=== PATIENT | female | born 1995 | race Two or more races ===

== ENCOUNTER 2023-06-14 12:58 | Inpatient (IN) | payer MEDICAID, OTHER ==
[~2023-06-14] VITALS: Ht 154.9 cm; Wt 55.0 kg
[2023-06-14] MEDS: SODIUM CHLORIDE 0.9% 1,000 ML IVB ONE (14:45)
[2023-06-14] MEDS: SODIUM CHLORIDE 0.9% 500 ML IVB ONE (14:45)
[2023-06-14] MEDS: SODIUM CHLORIDE 0.9% 1,000 ML IV ONE ×2 (15:30)
[2023-06-14 15:56] LABS: Basophils # (auto) 0 10 ^3/uL (0-0.2); Basophils % (auto) 0.6 % (0.0-2.0); Eosinophils # (auto) 0.2 10 ^3/uL (0-0.8); Eosinophils % (auto) 4.3 % (0.0-7.0); Hematocrit 41.9 % (36.0-46.0); Hemoglobin 14.2 g/dL (12.2-16.2); Lymphocytes # (auto) 1.6 10 ^3/uL (0.4-5.4); Lymphocytes % (auto) 31.6 % (10.0-50.0); Mean Corpuscular Hemoglobin 33.7 pg (28.0-32.0); Mean Corpuscular Volume 99.3 fL (80.0-100.0); Monocytes # (auto) 0.3 10 ^3/uL (0-1.3); Monocytes % (auto) 6.5 % (0.0-12.0); Neutrophils # (auto) 2.9 10 ^3/uL (1.6-8.6); Nucleated Red Blood Cells % 0.2 %; Red Blood Cells 4.22 10^6/uL (4.0-5.20); Red Cell Distribution Width 14.2 % (11.8-14.3); White Blood Cell 5.1 10^3/uL (4.4-10.8)
[2023-06-14 16:02] LABS: Alanine Aminotransferase 63 U/L (7-40); Albumin 4.3 g/dL (3.2-4.8); Alkaline Phosphatase 88 U/L (46-116); Anion Gap 9 (5-15); Aspartate Aminotransferase 76 U/L (13-40); BUN/Creatinine Ratio 6.9 (10.0-20.0); Bilirubin, Total 0.2 mg/dL (0.2-1.0); Blood Urea Nitrogen 5 mg/dL (9-23); Carbon Dioxide 24 mmol/L (20-30); Chloride 110 mmol/L (98-107); Glucose 92 mg/dL (74-106); Potassium 4.1 mmol/L (3.5-5.1); Sodium 143 mmol/L (136-145); Total Protein 7.4 g/dL (5.7-8.2)
[2023-06-14] MEDS ORDERED: DOCUSATE SOD 100 MG CAP PO PRN (19:45)
[2023-06-14] MEDS ORDERED: NITROGLYCERIN 0.4 MG SL TAB SL PRN (19:45)
[2023-06-14] MEDS ORDERED: MORPHINE SULFATE INJ 2 MG/ml SYRG IV PRN (19:45)
[2023-06-15] VITALS (8 sets, daily range): BP systolic 81–109; BP diastolic 45–72; PULSE 59–91; RESP 16–17; TEMP 97.2–98.2; O2SAT 98–99
[2023-06-15] MEDS: LORazepam 2MG/ML-1ML VIAL IV PRN ×2 (05:05→16:39)
[2023-06-15] MEDS: ACETAMINOPHEN 325 MG TAB PO PRN (05:05)
[2023-06-15] MEDS: SODIUM CHLORIDE 0.9% 1,000 ML IV ONE (05:08)
[2023-06-15] MEDS: THIAMINE 100mg/ml INJ (200mg/2ml VIAL) IV ONE (05:12)
[2023-06-15 07:37] LABS: Basophils # (auto) 0 10 ^3/uL (0-0.2); Eosinophils # (auto) 0.2 10 ^3/uL (0-0.8); Eosinophils % (auto) 4.3 % (0.0-7.0)
[2023-06-15 07:39] LABS: Basophils % (auto) 0.4 % (0.0-2.0); Hematocrit 35.2 % (36.0-46.0); Lymphocytes # (auto) 1.7 10 ^3/uL (0.4-5.4); Lymphocytes % (auto) 32.8 % (10.0-50.0); Mean Corpuscular Hemoglobin 34.2 pg (28.0-32.0); Mean Corpuscular Volume 100.7 fL (80.0-100.0); Monocytes # (auto) 0.5 10 ^3/uL (0-1.3); Monocytes % (auto) 9.3 % (0.0-12.0); Neutrophils # (auto) 2.7 10 ^3/uL (1.6-8.6); Neutrophils % (auto) 53.2 % (37.0-80.0); Nucleated Red Blood Cells % 0.1 %; Red Cell Distribution Width 14.1 % (11.8-14.3); White Blood Cell 5.1 10^3/uL (4.4-10.8)
[2023-06-15 07:43] LABS: Alanine Aminotransferase 51 U/L (7-40); Albumin 3.4 g/dL (3.2-4.8); Alkaline Phosphatase 68 U/L (46-116); Anion Gap 6 (5-15); Aspartate Aminotransferase 70 U/L (13-40); BUN/Creatinine Ratio 9.7 (10.0-20.0); Blood Urea Nitrogen 6 mg/dL (9-23); Carbon Dioxide 25 mmol/L (20-30); Chloride 109 mmol/L (98-107); Glucose 77 mg/dL (74-106); Potassium 3.6 mmol/L (3.5-5.1); Sodium 140 mmol/L (136-145)
[2023-06-15 07:44] LABS: Bilirubin, Total 0.6 mg/dL (0.2-1.0)
[2023-06-15] MEDS: ONDANSETRON HCL 4 MG/2 ML VIAL IV PRN (08:47)
[2023-06-15] MEDS: FOLIC ACID 1 MG TAB PO SCH (10:19)
[2023-06-15] MEDS: THIAMINE HCL 100 MG TAB PO SCH (10:19)
[2023-06-15] MEDS: MULTIPLE VITAMIN TAB PO SCH (10:19)
[2023-06-15] MEDS: PANTOPRAZOLE 40 MG TAB PO SCH (10:20)
[2023-06-15] MEDS: SODIUM CHLORIDE 0.9% 1,000 ML IV SCH (10:45)
[2023-06-15] MEDS: SODIUM CHLORIDE 0.9% 500 ML IV ONE (10:49)
[2023-06-15] MEDS ORDERED: ALPR0.5T PO (21:42)
[2023-06-15] MEDS: MELATONIN 5 MG TAB PO ONE (22:52)
[2023-06-16 01:00] VITALS: BP 120/77; PULSE 75; RESP 16; TEMP 97.9; O2SAT 99
[2023-06-16 04:54] VITALS: BP 104/56; PULSE 69; RESP 16; TEMP 98; O2SAT 98
[2023-06-16 05:36] LABS: Alanine Aminotransferase 44 U/L (7-40); Albumin 3.2 g/dL (3.2-4.8); Alkaline Phosphatase 63 U/L (46-116); Anion Gap 7 (5-15); Aspartate Aminotransferase 60 U/L (13-40); Bilirubin, Total 0.7 mg/dL (0.2-1.0); Calcium 8.4 mg/dL (8.7-10.4); Carbon Dioxide 22 mmol/L (20-30); Chloride 111 mmol/L (98-107); Glucose 83 mg/dL (74-106); Magnesium 1.6 mg/dL (1.6-2.6); Potassium 3.5 mmol/L (3.5-5.1); Sodium 140 mmol/L (136-145); Total Protein 5.5 g/dL (5.7-8.2)
[2023-06-16 05:46] LABS: BUN/Creatinine Ratio 8.5 (10.0-20.0); Blood Urea Nitrogen < 5 mg/dL (9-23)
[2023-06-16 08:00] VITALS: PULSE 74
== END 2023-06-16 13:54 | disposition home or self-care (01) | DRG 816 ==
LOC: ER 12:58 → EDBD 12:58 → TELE 19:46 → TELE-WESTW 19:46
PROVIDERS: ADMIT Nurse Practitioner Family; ATTEND Internal Medicine Geriatric Medicine
DX: T51.91XA Toxic effect of unspecified alcohol, accidental (unintentional), initial encounter (principal); G92.8 Other toxic encephalopathy; I95.89 Other hypotension; F10.229 Alcohol dependence with intoxication, unspecified; R74.01 Elevation of levels of liver transaminase levels; F41.1 Generalized anxiety disorder; Z79.899 Other long term (current) drug therapy; Y90.9 Presence of alcohol in blood, level not specified; F10.239 Alcohol dependence with withdrawal, unspecified
CPT/HCPCS: 36415; 70450; 80053; 80320; 82140; 83735; 84484; 84702; 85025; G0378; J2405

== ENCOUNTER 2023-10-11 15:06 | Inpatient (IN) | payer MEDICAID ==
[~2023-10-11] VITALS: Ht 154.9 cm; Wt 69.8 kg
[~2023-10-11 15:06] MED LIST: ALPR0.5T PO
[2023-10-11 16:02] LABS: Basophils # (auto) 0 10 ^3/uL (0-0.2); Basophils % (auto) 0.5 % (0.0-2.0); Eosinophils # (auto) 0 10 ^3/uL (0-0.8); Eosinophils % (auto) 0.6 % (0.0-7.0); Hematocrit 44.4 % (36.0-46.0); Hemoglobin 14.7 g/dL (12.2-16.2); Lymphocytes % (auto) 14.5 % (10.0-50.0); Mean Corpuscular Hemoglobin 32.2 pg (28.0-32.0); Mean Corpuscular Volume 97.6 fL (80.0-100.0); Monocytes # (auto) 0.2 10 ^3/uL (0-1.3); Monocytes % (auto) 3.5 % (0.0-12.0); Neutrophils # (auto) 5.4 10 ^3/uL (1.6-8.6); Neutrophils % (auto) 80.9 % (37.0-80.0); Nucleated Red Blood Cells % 0.1 %; Platelet Count (auto) 378 10^3/uL (140-450); Red Blood Cells 4.56 10^6/uL (4.0-5.20); Red Cell Distribution Width 15.3 % (11.8-14.3); White Blood Cell 6.6 10^3/uL (4.4-10.8)
[2023-10-11 16:20] LABS: Alanine Aminotransferase 18 U/L (7-40); Albumin 4.4 g/dL (3.2-4.8); Alkaline Phosphatase 66 U/L (46-116); Anion Gap 13 (5-15); Aspartate Aminotransferase 36 U/L (13-40); BUN/Creatinine Ratio 7.3 (10.0-20.0); Blood Alcohol 204.4 mg/dL (<10); Blood Urea Nitrogen 6 mg/dL (9-23); Calcium 9.3 mg/dL (8.7-10.4); Carbon Dioxide 21 mmol/L (20-30); Chloride 109 mmol/L (98-107); Glucose 90 mg/dL (74-106); Magnesium 1.9 mg/dL (1.6-2.6); Potassium 3.1 mmol/L (3.5-5.1); Sodium 143 mmol/L (136-145)
[2023-10-11] MEDS: SODIUM CHLORIDE 0.9% 1,000 ML IV ONE ×3 (16:20→20:36)
[2023-10-11 16:21] LABS: Bilirubin, Total 0.7 mg/dL (0.2-1.0); Total Protein 7.7 g/dL (5.7-8.2)
[2023-10-11 16:41] LABS: Lactic Acid w/Reflex 4.6 mmol/L (0.4-2.0)
[2023-10-11] MEDS: ONDANSETRON HCL 4 MG/2 ML VIAL IV ONE (17:27)
[2023-10-11] MEDS: THIAMINE HCL 100 MG TAB PO ONE (17:28)
[2023-10-11] MEDS: MAGNESIUM OXIDE 400 MG TAB PO ONE (17:28)
[2023-10-11 22:23] LABS: Lactic Acid w/Reflex 3.7 mmol/L (0.4-2.0)
[2023-10-11] MEDS ORDERED: ACETAMINOPHEN 325 MG TAB PO PRN (23:00)
[2023-10-11] MEDS ORDERED: TEMAZEPAM 15 MG CAP PO PRN (23:00)
[2023-10-12 01:39] LABS: Amphetamine Screen, Urine Neg (NEGATIVE); Barbiturate Scree,Urine Neg (NEGATIVE); Benzodiazephine Screen, Urine Neg (NEGATIVE); Cannabinoid Screen, Urine Pos (NEGATIVE); Cocaine Screen, Urine Pos (NEGATIVE); Opiate Scree,Urine Neg (NEGATIVE); Phencyclidine Screen, Urine Neg (NEGATIVE); Urine Bacteria MOD /hpf (None Seen); Urine Blood 1+ /uL (Negative); Urine Clarity Turbid (Clear); Urine Color Light-Yellow (Yellow); Urine Mucus FEW (None Seen); Urine Protein, UAD TRACE (Negative); Urine Urobilinogen Normal (Negative); Urine WBC 3 /hpf (0 - 5)
[2023-10-12] MEDS: SODIUM CHLORIDE 0.9% 1,000 ML IV ONE (04:20)
[2023-10-12] MEDS: cefTRIAXone 1GM/50ML D5W 50 ML IV ONE (04:21)
[2023-10-12 04:25] VITALS: BP 121/78; PULSE 57; RESP 20; TEMP 97.6; O2SAT 97
[2023-10-12 04:35] VITALS: BP 121/78; PULSE 57; RESP 20; TEMP 97.6; O2SAT 97
[2023-10-12] MEDS: SOD CHL 0.9%/ KCL 20MEQ 1,000 ML IV ONE (05:01)
[2023-10-12] MEDS: ONDANSETRON HCL 4 MG/2 ML VIAL IV PRN (05:01)
[2023-10-12 06:08] LABS: Basophils # (auto) 0 10 ^3/uL (0-0.2); Basophils % (auto) 0.7 % (0.0-2.0); Eosinophils # (auto) 0 10 ^3/uL (0-0.8); Eosinophils % (auto) 0.2 % (0.0-7.0); Hematocrit 36.8 % (36.0-46.0); Hemoglobin 12.6 g/dL (12.2-16.2); Lymphocytes # (auto) 1.6 10 ^3/uL (0.4-5.4); Lymphocytes % (auto) 24.6 % (10.0-50.0); Mean Corpuscular Hemoglobin 33.4 pg (28.0-32.0); Mean Corpuscular Hgb Conc. 34.1 g/dL (32.0-36.0); Monocytes # (auto) 0.5 10 ^3/uL (0-1.3); Monocytes % (auto) 7.1 % (0.0-12.0); Neutrophils # (auto) 4.3 10 ^3/uL (1.6-8.6); Neutrophils % (auto) 67.4 % (37.0-80.0); Nucleated Red Blood Cells % 0.1 %; Platelet Count (auto) 313 10^3/uL (140-450); Red Blood Cells 3.76 10^6/uL (4.0-5.20); Red Cell Distribution Width 15.5 % (11.8-14.3); White Blood Cell 6.4 10^3/uL (4.4-10.8)
[2023-10-12 06:37] LABS: Alanine Aminotransferase 15 U/L (7-40); Albumin 3.7 g/dL (3.2-4.8); Alkaline Phosphatase 58 U/L (46-116); Anion Gap 13 (5-15); Aspartate Aminotransferase 30 U/L (13-40); BUN/Creatinine Ratio 7.6 (10.0-20.0); Blood Urea Nitrogen 5 mg/dL (9-23); Calcium 8.1 mg/dL (8.7-10.4); Carbon Dioxide 20 mmol/L (20-30); Chloride 108 mmol/L (98-107); Glucose 67 mg/dL (74-106); Potassium 3.8 mmol/L (3.5-5.1); Sodium 141 mmol/L (136-145)
[2023-10-12 06:38] LABS: Total Protein 6.5 g/dL (5.7-8.2)
[2023-10-12] MEDS: FOLIC ACID 1 MG TAB PO SCH (08:46)
[2023-10-12] MEDS: THIAMINE HCL 100 MG TAB PO SCH (08:46)
[2023-10-12] MEDS: chlordiazePOXIDE HCL 25 MG CAP PO PRN (08:46)
[2023-10-12 13:00] VITALS: BP 114/73; PULSE 64; RESP 20; TEMP 98; O2SAT 99
[2023-10-12] MEDS: SODIUM CHLORIDE 0.9% 1,000 ML IV SCH (16:00)
[2023-10-12] MEDS: CALCIUM GLUC 1,000mg/50ml-NS 50 ML IV ONE (16:35)
[2023-10-12 17:00] VITALS: BP 102/53; PULSE 62; RESP 20; TEMP 98.2; O2SAT 97
[2023-10-12 21:00] VITALS: BP 123/78; PULSE 66; RESP 18; TEMP 97.9; O2SAT 99
[2023-10-12] MEDS: CHOLECALCIFEROL (VITD3) 1,000UNIT=25mCg TAB PO ONE (21:02)
[2023-10-12] MEDS: cefTRIAXone 1GM/50ML D5W 50 ML IV SCH (21:03)
[2023-10-13 01:00] VITALS: BP 95/57; PULSE 61; RESP 18; TEMP 98.5; O2SAT 92
[2023-10-13 05:00] VITALS: BP 113/71; PULSE 61; RESP 18; TEMP 97.9; O2SAT 93
[2023-10-13 06:30] LABS: Chloride 108 mmol/L (98-107); Potassium 3.5 mmol/L (3.5-5.1); Sodium 137 mmol/L (136-145)
[2023-10-13 06:31] LABS: Anion Gap 9 (5-15); Calcium 8.8 mg/dL (8.7-10.4); Carbon Dioxide 20 mmol/L (20-30)
[2023-10-13 06:34] LABS: Basophils # (auto) 0 10 ^3/uL (0-0.2); Basophils % (auto) 0.8 % (0.0-2.0); Eosinophils # (auto) 0.1 10 ^3/uL (0-0.8); Eosinophils % (auto) 1.8 % (0.0-7.0); Hematocrit 39.4 % (36.0-46.0); Hemoglobin 13.3 g/dL (12.2-16.2); Lymphocytes # (auto) 1.8 10 ^3/uL (0.4-5.4); Lymphocytes % (auto) 35.9 % (10.0-50.0); Mean Corpuscular Hemoglobin 32.9 pg (28.0-32.0); Mean Corpuscular Hgb Conc. 33.6 g/dL (32.0-36.0); Mean Corpuscular Volume 97.9 fL (80.0-100.0); Monocytes # (auto) 0.5 10 ^3/uL (0-1.3); Monocytes % (auto) 9.7 % (0.0-12.0); Neutrophils # (auto) 2.6 10 ^3/uL (1.6-8.6); Neutrophils % (auto) 51.8 % (37.0-80.0); Nucleated Red Blood Cells % 0.1 %; Platelet Count (auto) 307 10^3/uL (140-450); Red Blood Cells 4.02 10^6/uL (4.0-5.20); Red Cell Distribution Width 14.6 % (11.8-14.3); White Blood Cell 5.1 10^3/uL (4.4-10.8)
[2023-10-13 06:36] LABS: Glucose 75 mg/dL (74-106)
[2023-10-13 06:40] LABS: BUN/Creatinine Ratio 6.2 (10.0-20.0); Blood Urea Nitrogen < 5 mg/dL (9-23)
[2023-10-13 08:00] VITALS: PULSE 58; RESP 20; O2SAT 96
[2023-10-13 09:00] VITALS: BP 99/68; PULSE 58; RESP 20; TEMP 98.2; O2SAT 96
[2023-10-13] MEDS: CHOLECALCIFEROL (VITD3) 1,000UNIT=25mCg TAB PO SCH (10:00)
== END 2023-10-13 11:15 | disposition left against medical advice (07) | DRG 351 ==
LOC: ER 15:06 → EDBD 15:06 → OVERFLOW 22:55 → WEST WING 10-12 04:40 → TELE-WESTW 10-12 22:57
PROVIDERS: ADMIT Internal Medicine Geriatric Medicine; ATTEND Internal Medicine Geriatric Medicine
DX: M62.82 Rhabdomyolysis (principal); E87.20 Acidosis, unspecified; N17.9 Acute kidney failure, unspecified; E87.8 Other disorders of electrolyte and fluid balance, not elsewhere classified; E86.0 Dehydration; F10.129 Alcohol abuse with intoxication, unspecified; E87.6 Hypokalemia; E55.9 Vitamin D deficiency, unspecified; K76.0 Fatty (change of) liver, not elsewhere classified; Z53.29 Procedure and treatment not carried out because of patient's decision for other reasons; F14.10 Cocaine abuse, uncomplicated; F12.10 Cannabis abuse, uncomplicated; Z79.899 Other long term (current) drug therapy; Z88.8 Allergy status to other drugs, medicaments and biological substances
CPT/HCPCS: 36415; 74176; 80048; 80053; 80307; 80320; 81001; 81025; 82306; 82550; 82607; 83605; 83690; 83735; 84443; 84702; 85025; 96374; G0378; J2405